=== PATIENT | male | born 1980 | race Caucasian/White ===

== ENCOUNTER 2018-06-30 14:41 | Inpatient (IN) | payer BC ==
[~2018-06-30] VITALS: Ht 185.4 cm; Wt 124.5 kg
[~2018-06-30 14:41] MED LIST: SEVOFLURANE 15 MIN ONE
[2018-06-30] MEDS ORDERED: SOD CHLORIDE 0.9% 1,000 ML IV STA (15:17)
[2018-06-30] MEDS ORDERED: FAMOTIDINE 20 MG INJ IV ONE (15:30)
[2018-06-30] MEDS ORDERED: SOD CHLORIDE 0.9% 100 ML ONE (15:41)
[2018-06-30] MEDS ORDERED: IOHEXOL 300MG/ML 150 ML BTL ONE (15:41)
--- NOTE | 2018-06-30 15:46 | ERD ---
ER Documentation Chief Complaint Chief Complaint SENT SURGEON ( DR ROSALES)-PT HAS AN OBALON PROCEDURE - BALLON RUPTURE - HPI This is a 37-year-old gentleman who was sent by his surgeon for further evaluation of abdominal pain. The patient had a procedure 6 months ago of a gastric balloon inflation by Dr. Rosas. The patient is having severe epigastric abdominal discomfort since yesterday evening after eating salsa. The pain is no bryant to be 8 out of 10 without hematemesis or melena. Patient states that he had a plastic taste in his mouth. Dr. Rosas is concerned that the patient is at risk for perforation and recommends x-ray and CT abdomen and pelvis with IV contrast. ROS All systems reviewed and are negative except as per history of present illness. Medications Home Meds Reported Medications Phentermine Hcl (Phentermine Hcl) 37.5 Mg Tablet, 37.5 MG PO DAILY, TAB 06/30/18 Lansoprazole* (Lansoprazole*) 30 Mg Capsule.dr, 30 MG PO DAILY, CAP 06/30/18 Allergies Allergies: Coded Allergies: No Known Allergy (Unverified , 06/30/18) PMhx/Soc Medical and Surgical Hx: pt denies Surgical Hx Hx Miscellaneous Medical Probl: Yes (OBALON GASTRIC BALLON X 6 MONTHS AGO ) Hx Alcohol Use: No Hx Substance Use: No Hx Tobacco Use: No Smoking Status: Never smoker FmHx Family History: No diabetes Physical Exam Vitals Vital Signs Date Temp Pulse Resp B/P (MAP) Pulse Ox O2 O2 Flow FiO2 Time Delivery Rate 06/30/18 86 18 116/73 99 Room Air 16:39 (87) 06/30/18 98.8 94 19 149/90 96 14:48 (109) Physical Exam General: Well developed, well nourished, no acute distress Head: Normocephalic, atraumatic. Eyes: Pupils equally reactive, EOM intact ENT: Moist mucous membranes Neck: Supple, no lymphadenopathy Respiratory: Lungs clear bilaterally, no distress Cardiovascular: RRR, no murmurs, rubs, or gallops Abdominal: Soft, mild epigastric abdominal tenderness without rebound or guarding, no peritonitis : Deferred MSK: No edema, no unilateral swelling, 5/5 strength Neurologic: Alert and oriented, moving all extremities, normal speech, no focal weakness, no cerebellar signs Skin: No rash Psych: Normal mood Result Diagram: 4/14/19 1522 06/30/18 1522 Results 24 hrs Laboratory Tests Test 06/30/18 15:22 White Blood Count 14.9 10^3/ul Red Blood Count 5.24 10^6/ul Hemoglobin 16.1 g/dl Hematocrit 46.9 % Mean Corpuscular Volume 89.5 fl Mean Corpuscular Hemoglobin 30.7 pg Mean Corpuscular Hemoglobin Concent 34.3 g/dl Red Cell Distribution Width 11.9 % Platelet Count 294 10^3/UL Mean Platelet Volume 9.3 fl Immature Granulocytes % 0.400 % Neutrophils % 75.6 % Lymphocytes % 17.3 % Monocytes % 5.0 % Eosinophils % 1.1 % Basophils % 0.6 % Nucleated Red Blood Cells % 0.0 /100WBC Immature Granulocytes # 0.060 10^3/ul Neutrophils # 11.3 10^3/ul Lymphocytes # 2.6 10^3/ul Monocytes # 0.7 10^3/ul Eosinophils # 0.2 10^3/ul Basophils # 0.1 10^3/ul Nucleated Red Blood Cells # 0.0 10^3/ul Prothrombin Time 12.4 Sec Prothrombin Time Ratio 1.0 INR International Normalized Ratio 0.91 Activated Partial Thromboplast Time 24.5 Sec Sodium Level 143 mmol/L Potassium Level 4.5 mmol/L Chloride Level 102 mmol/L Carbon Dioxide Level 28 mmol/L Anion Gap 13 Blood Urea Nitrogen 14 mg/dl Creatinine 0.74 mg/dl Est Glomerular Filtrat Rate mL/min > 60 mL/min Glucose Level 148 mg/dl Calcium Level 10.4 mg/dl Total Bilirubin 1.1 mg/dl Direct Bilirubin 0.00 mg/dl Indirect Bilirubin 1.1 mg/dl Aspartate Amino Transf (AST/SGOT) 27 IU/L Alanine Aminotransferase (ALT/SGPT) 41 IU/L Alkaline Phosphatase 103 IU/L Total Protein 8.8 g/dl Albumin 5.0 g/dl Globulin 3.80 g/dl Albumin/Globulin Ratio 1.31 Lipase 113 U/L Current Medications Medications Dose Sig/Kentrell Start Time Status Last (Trade) Ordered Route PRN Stop Time Admin Dose Reason Admin Sodium 1,000 ml @ Q1H STAT 06/30/18 DC 06/30/18 Chloride 1,000 mls/hr IV 15:17 15:32 06/30/18 16:16 Famotidine 20 mg ONCE ONCE 06/30/18 DC 06/30/18 (Pepcid Iv) IV 15:30 15:32 06/30/18 15:31 IV Flush 10 ml STK-MED 06/30/18 DC (NS 10 ml) ONCE .ROUTE 15:41 06/30/18 15:42 Sodium 100 ml @ ud STK-MED 06/30/18 DC Chloride ONCE .ROUTE 15:41 06/30/18 15:42 Iohexol 150 ml STK-MED 06/30/18 DC (Omnipaque ONCE .ROUTE 15:41 300mg/ ml) 06/30/18 15:42 650 mg ONCE ONCE 06/30/18 DC 06/30/18 Acetaminophen PO 16:30 16:31 (Tylenol 06/30/18 16:31 Tab) 40 mg ONCE ONCE 06/30/18 DC 06/30/18 Pantoprazole IV 18:00 17:56 (Protonix 06/30/18 18:01 Iv) Ondansetron 4 mg BRIDGE ORDER 06/30/18 HCl (Zofran PRN IV 18:30 Inj) NAUSEA/VOMITI 07/01/18 18:29 NG 650 mg ER BRIDGE 06/30/18 Acetaminophen PRN PO 18:30 (Tylenol .MILD PAIN 07/01/18 18:29 Tab) 1-3 OR TEMP Procedures/MDM EKG, MONITORS, & DIAGNOSTIC IMAGING: Chest x-ray: IMPRESSION: No evidence of active cardiopulmonary disease. RPTAT: EE CT abdomen and pelvis: IMPRESSION: No evidence of urolithiasis, obstructive uropathy, diverticulitis or appendicitis. 3 Air-filled balloons inflated in the lumen of the stomach. Clinical correlation suggested. Enlarged fatty liver. LAB INTERPRETATION: I reviewed the laboratory testing and it shows WBC elevated MEDICAL DECISION MAKING: The patient's presentation is likely consistent with gastritis. However, given his surgical procedure he is at risk for ulceration and perforation. His surgeon is asking for CT imaging and x-ray imaging of the abdomen and pelvis. No signs or symptoms concerning for dissection or acute coronary syndrome. ER COURSE: * Patient given H2-siddhartha. Pain improved. * Surgeon notified of CT imaging, he is concerned that the patient has a leukocytosis and warrants hospitalization for removal of balloons. Patient was given PPI per surgeon request. CONSULTATION: General surgeon as documented above DISPOSITION PLAN: Accepting care team and consultations: I discussed the current laboratory data, diagnostic imaging and emergency care provided. Admitting team: Dr. Bacon Admitting team indication: Insurance directed Departure Diagnosis: Primary Impression: Epigastric abdominal pain Additional Impression: Leukocytosis Leukocytosis type: unspecified Qualified Codes: D72.829 - Elevated white blood cell count, unspecified Condition: Stable REBECA PERRY MD Jun 30, 2018 15:46
[2018-06-30] MEDS ORDERED: ACETAMINOPHEN 325 MG TAB PO ONE (16:30)
[2018-06-30] MEDS ORDERED: LANS30CA PO (16:39)
[2018-06-30] MEDS ORDERED: PHEN37.53 PO (16:39)
[2018-06-30] MEDS ORDERED: PANTOPRAZOLE 40 MG INJ IV ONE (18:00)
[2018-06-30] MEDS ORDERED: ONDANSETRON 4 MG INJ IV PRN ×3 (18:30→22:30)
[2018-06-30] MEDS ORDERED: ACETAMINOPHEN 325 MG TAB PO PRN ×2 (18:30→22:30)
[2018-06-30 19:30] VITALS: BP 117/73; PULSE 87; RESP 18
--- NOTE | 2018-06-30 20:31 | PREAC ---
Date/Time of Note Date/Time of Note DATE: 06/30/18 TIME: 20:30 Anesthesia Eval and Record Evaluation Time Pre-Procedure Interview DATE: 06/30/18 TIME: 20:30 Age 37 Sex male NPO: 8 hrs Preoperative diagnosis ABd apin Planned procedure EGD removal of gaschantal cherry Past Medical History Past Medical History: Includes GI: Obesity Surgery & Anesthesia Issues No known issue Meds Anticoagulation: No Beta Lee Ann within 24 hr: No Reason Beta Lee Ann not given: Pt. not on B-Lee Ann Reported Medications Phentermine Hcl (Phentermine Hcl) 37.5 Mg Tablet, 37.5 MG PO DAILY, TAB 06/30/18 Lansoprazole* (Lansoprazole*) 30 Mg Capsule.dr, 30 MG PO DAILY, CAP 06/30/18 Current Medications Ondansetron HCl (Zofran Inj) 4 mg BRIDGE ORDER PRN IV NAUSEA/VOMITING; Start 06/30/18 at 18:30; Stop 07/01/18 at 18:29 Acetaminophen (Tylenol Tab) 650 mg ER BRIDGE PRN PO .MILD PAIN 1-3 OR TEMP; Start 06/30/18 at 18:30; Stop 07/01/18 at 18:29 Meds reviewed: Yes Allergies Coded Allergies: No Known Allergy (Unverified , 06/30/18) Allergies Reviewed: Yes Labs/Studies Labs Reviewed: Reviewed by anesthesiologist Result Diagram: 06/30/18 1522 06/30/18 1522 Laboratory Tests 06/30/18 15:22 test: N/A Studies: ECG (m/a), CXR (n/a) Pre-procedure Exam Last vitals Vital Signs Date Temp Pulse Resp B/P (MAP) Pulse Ox O2 O2 Flow FiO2 Time Delivery Rate 06/30/18 80 19 133/93 100 Room Air 19:29 (106) 06/30/18 98.0 18:50 Airway: Adequate mouth opening Mallampati: Mallampati III Teeth: Normal Lung: Normal Heart: Normal ASA Physical Status ASA physical status: 2 Emergency: None Planned Anesthetic General/MAC: ETT Planned Pain Management Parenteral pain med Pre-operative Attestations Prior to commencing anesthesia and surgery, the patient was re-evaluated, there was verification of: *The patient's identity *The results of appropriate recent lab work and preoperative vital signs *The above evaluation not changing prior to induction *Anesthetic plan, risk benefits, alternative and complications discussed with patient/family; questions answered; patient/family understands, accepts and wishes to proceed. PAVEL CROUCH MD Jun 30, 2018 20:31
[2018-06-30] MEDS ORDERED: PROPOFOL 20 ML ONE ×2 (20:43→21:10)
[2018-06-30] MEDS ORDERED: METOCLOPRAMIDE 10 MG INJ ONE (20:43)
[2018-06-30] MEDS ORDERED: MIDAZOLAM 1 MG/ML 2 ML INJ ONE (20:43)
[2018-06-30] MEDS ORDERED: SUCCINYLCHOLINE CHLORIDE 100 MG/5 ML SYG IV ONE (20:43)
[2018-06-30] MEDS ORDERED: ONDANSETRON 4 MG INJ ONE (20:43)
[2018-06-30] MEDS ORDERED: FENTAnyl 50 MCG/ML VIAL ONE (20:44)
--- NOTE | 2018-06-30 20:47 | CONS ---
Assessment/Plan Assessment/Plan Assessment/Plan (Daily) 37 year old male with morbid obesity, s/p gastric balloon with severe abdominal pain, Epigastric tenderness, elevated WBC 15, - most likely secondary to ulceration - possible pending perforation, patient started on PPI -- Recommend emergency removal of foreign body Plan: 1. Consent 2. Removal of foreign body - 3. continue PPI 4. Follow up in Clinic Consultation Date/Type/Reason Admit Date/Time Jun 30, 2018 at 18:03 Date of Consultation: Jun 30, 2018 Type of Consult General Surgery consult Reason for Consultation Evaluation of acute abdominal pain Date/Time of Note DATE: 06/30/18 TIME: 20:33 Hx of Present Illness This is a 37-year-old gentleman with morbid obesity gastric balloon placement 6 months ago. He was in his usual state of health until yesterday when he started having abdominal pain. The pain is noted to be 8 out of 10 without hematemesis or melena. He had spicy food last evening, and attributes the pain to spicy food. Patient states that he had a plastic taste in his mouth. Patient was referred to ER for emergency evaluation is concerned that the patient is at risk for perforation and recommends x-ray and CT abdomen and pelvis with IV contrast. Patient denies any Fever, chills, any recent sickness, no cough, SOB. Last PO intake in Am. Patient states that he has not been taking his PPI as was directed. ROS All systems reviewed and are negative except as per history of present illness. Medications Home Meds Reported Medications Phentermine Hcl (Phentermine Hcl) 37.5 Mg Tablet, 37.5 MG PO DAILY, TAB 06/30/18 Lansoprazole* (Lansoprazole*) 30 Mg Capsule.dr, 30 MG PO DAILY, CAP 06/30/18 Allergies Allergies: Coded Allergies: No Known Allergy (Unverified , 06/30/18) PMhx/Soc Medical and Surgical Hx: pt denies Surgical Hx Hx Miscellaneous Medical Probl: Yes (OBALON GASTRIC BALLON X 6 MONTHS AGO ) Hx Alcohol Use: No Hx Substance Use: No Hx Tobacco Use: No Smoking Status: Never smoker Constitutional: No no complaints, No improved, No chills, No diaphoresis, No disoriented, No febrile, No poor po, No requiring IVF, No requiring O2, No other Eyes: No no complaints, No pain, No discharge, No redness, No visual change, No other ENT: No no complaints, No bleeding, No pain, No congestion, No discharge, No dysphagia, No sore throat, No other Respiratory: No no complaints, No pain, No cough, No pleuritic pain, No shortness of breath, No sputum, No wheezing, No other Cardiovascular: No no complaints, No chest pain, No edema, No lightheadedness, No orthopenea, No palpitations, No paroxysmal nocturnal dyspnea, No other Gastrointestinal: pain, decreased appetite, nausea Genitourinary: No no complaints, No bleeding, No dysuria, No discharge, No flank pain, No hematuria, No other Musculoskeletal: No no complaints, No back pain, No bone/joint pain, No neck pain, No restricted range of motion, No swelling, No other Skin: No no complaints, No bruising, No erythema, No laceration, No pruritis, No rash, No skin lesions, No other Neurologic: No no complaints, No confusion, No dizziness, No focal-weakness, No headache, No syncope, No seizure, No other Endocrine: No no complaints, No polyuria, No polydypsia, No dry skin, No temp intolerance, No other Lymphatic: No no complaints, No adenopathy, No tender nodes, No lymphadema, No other Psychological: No no complaints, No nl mood/affect, No anxiety, No confusion, No depression, No suicidal, No other Immunologic: No no complaints, No immunodeficiency, No pruritis, No rhinitis, No urticaria, No other Past Medical History Home Meds Reported Medications Phentermine Hcl (Phentermine Hcl) 37.5 Mg Tablet, 37.5 MG PO DAILY, TAB 06/30/18 Lansoprazole* (Lansoprazole*) 30 Mg Capsule.dr, 30 MG PO DAILY, CAP 06/30/18 Medications Current Medications Ondansetron HCl (Zofran Inj) 4 mg BRIDGE ORDER PRN IV NAUSEA/VOMITING; Start 06/30/18 at 18:30; Stop 07/01/18 at 18:29 Acetaminophen (Tylenol Tab) 650 mg ER BRIDGE PRN PO .MILD PAIN 1-3 OR TEMP; Start 06/30/18 at 18:30; Stop 07/01/18 at 18:29 Allergies: Coded Allergies: No Known Allergy (Unverified , 06/30/18) Social History Smoking Status: Never smoker Exam/Review of Systems Exam Vitals Vital Signs Date Temp Pulse Resp B/P (MAP) Pulse Ox O2 O2 Flow FiO2 Time Delivery Rate 06/30/18 80 19 133/93 100 Room Air 19:29 (106) 06/30/18 98.0 18:50 Gastrointestinal: soft, nl liver, spleen, non-tender, ascites, bowel sounds, distended, firm, hepatomegaly, mass, rebound or guarding, splenomegaly, surgical scars, tender (Epigastric - moderate ), other Results Result Diagram: 06/30/18 1522 06/30/18 1522 Results 24hrs Laboratory Tests Test 06/30/18 15:22 White Blood Count 14.9 H Red Blood Count 5.24 Hemoglobin 16.1 Hematocrit 46.9 Mean Corpuscular Volume 89.5 Mean Corpuscular Hemoglobin 30.7 Mean Corpuscular Hemoglobin Concent 34.3 Red Cell Distribution Width 11.9 Platelet Count 294 Mean Platelet Volume 9.3 Immature Granulocytes % 0.400 Neutrophils % 75.6 Lymphocytes % 17.3 Monocytes % 5.0 Eosinophils % 1.1 Basophils % 0.6 Nucleated Red Blood Cells % 0.0 Immature Granulocytes # 0.060 H Neutrophils # 11.3 H Lymphocytes # 2.6 Monocytes # 0.7 Eosinophils # 0.2 Basophils # 0.1 Nucleated Red Blood Cells # 0.0 Prothrombin Time 12.4 Prothrombin Time Ratio 1.0 INR International Normalized Ratio 0.91 Activated Partial Thromboplast Time 24.5 Sodium Level 143 Potassium Level 4.5 Chloride Level 102 Carbon Dioxide Level 28 Anion Gap 13 Blood Urea Nitrogen 14 Creatinine 0.74 Est Glomerular Filtrat Rate mL/min > 60 Glucose Level 148 Calcium Level 10.4 H Total Bilirubin 1.1 Direct Bilirubin 0.00 Indirect Bilirubin 1.1 Aspartate Amino Transf (AST/SGOT) 27 Alanine Aminotransferase (ALT/SGPT) 41 Alkaline Phosphatase 103 Total Protein 8.8 H Albumin 5.0 H Globulin 3.80 H Albumin/Globulin Ratio 1.31 Lipase [address] Negative for perforation -- + gastric balloon x 3 US -- GB wall thickening - no stones Medications Medication Current Medications Ondansetron HCl (Zofran Inj) 4 mg BRIDGE ORDER PRN IV NAUSEA/VOMITING; Start 06/30/18 at 18:30; Stop 07/01/18 at 18:29 Acetaminophen (Tylenol Tab) 650 mg ER BRIDGE PRN PO .MILD PAIN 1-3 OR TEMP; Start 06/30/18 at 18:30; Stop 07/01/18 at 18:29 BOBBY SALEEM MD Jun 30, 2018 20:44
[2018-06-30] MEDS ORDERED: ALBUTEROL/IPRATROPIUM (NEB) 3 ML AMP HHN PRN (21:00)
[2018-06-30] MEDS ORDERED: NACL 0.9% 3 ML SYG IV SCH (21:00)
[2018-06-30] MEDS ORDERED: ROCURONIUM 50 MG INJ ONE (21:12)
[2018-06-30 21:15] VITALS: Ht 185.4 cm; Wt 124.5 kg
[2018-06-30] MEDS ORDERED: NEOSTIGMINE 3 MG/3 ML SYRINGE ONE (21:45)
[2018-06-30] MEDS ORDERED: GLYCOPYRROLATE 0.4 MG INJ ONE (21:45)
--- NOTE | 2018-06-30 22:16 | SIPON ---
Date/Time of Note Date/Time of Note DATE: 06/30/18 TIME: 22:12 Operative Report Preoperative Diagnosis Acute abdominal pain, Foreign body, morbid obesity Postoperative Diagnosis Gastric Ulcer, Gastritis, Morbid obesity Operation/Procedure Performed Upper endoscopy and removal of foreign body Surgeon Mis JARVIS. teacher's assistant None Anesthesia: general Estimated blood loss: none Transfusion Required none Specimen Gastric balloon - type OBALON X 3 Grafts/Implants none Complications none BOBBY SALEEM MD Jun 30, 2018 22:16
[2018-06-30] MEDS: LACTATED RINGER'S 1,000 ML IV SCH (22:28)
[2018-06-30 22:30] VITALS: BP 119/64; PULSE 83; RESP 12
[2018-06-30] MEDS ORDERED: DIPHENHYDRAMINE 50 MG INJ IV PRN (22:30)
[2018-06-30] MEDS ORDERED: CEPASTAT LOZENGE MT PRN (22:30)
[2018-06-30 22:44] VITALS: BP 123/64; PULSE 65; RESP 18
--- NOTE | 2018-06-30 23:42 | HP ---
Date/Time of Note Date/Time of Note DATE: 06/30/18 TIME: 23:42 Assessment/Plan VTE Prophylaxis Risk score (from Nsg)>0 risk: 3 SCD applied (from Nsg): No Lines/Catheters IV Catheter Type (from Nrsg): Saline Lock Assessment/Plan Assessment/Plan 37-year-old morbidly obese male with a history of 3 gastric balloon placement 6 months ago presents with acute onset abdominal pain. Patient is now status post removal of the balloons. PLAN -Postop diagnosis include gastric ulcer and acute gastritis. Will be treated with PPI -Follow-up surgery recommendation Result Diagram: 06/30/18 1522 06/30/18 1522 Results 24hrs Laboratory Tests Test 06/30/18 15:22 White Blood Count 14.9 H Red Blood Count 5.24 Hemoglobin 16.1 Hematocrit 46.9 Mean Corpuscular Volume 89.5 Mean Corpuscular Hemoglobin 30.7 Mean Corpuscular Hemoglobin Concent 34.3 Red Cell Distribution Width 11.9 Platelet Count 294 Mean Platelet Volume 9.3 Immature Granulocytes % 0.400 Neutrophils % 75.6 Lymphocytes % 17.3 Monocytes % 5.0 Eosinophils % 1.1 Basophils % 0.6 Nucleated Red Blood Cells % 0.0 Immature Granulocytes # 0.060 H Neutrophils # 11.3 H Lymphocytes # 2.6 Monocytes # 0.7 Eosinophils # 0.2 Basophils # 0.1 Nucleated Red Blood Cells # 0.0 Prothrombin Time 12.4 Prothrombin Time Ratio 1.0 INR International Normalized Ratio 0.91 Activated Partial Thromboplast Time 24.5 Sodium Level 143 Potassium Level 4.5 Chloride Level 102 Carbon Dioxide Level 28 Anion Gap 13 Blood Urea Nitrogen 14 Creatinine 0.74 Est Glomerular Filtrat Rate mL/min > 60 Glucose Level 148 Calcium Level 10.4 H Total Bilirubin 1.1 Direct Bilirubin 0.00 Indirect Bilirubin 1.1 Aspartate Amino Transf (AST/SGOT) 27 Alanine Aminotransferase (ALT/SGPT) 41 Alkaline Phosphatase 103 Total Protein 8.8 H Albumin 5.0 H Globulin 3.80 H Albumin/Globulin Ratio 1.31 Lipase 113 HPI/ROS Admit Date/Time Admit Date/Time Jun 30, 2018 at 18:03 Hx of Present Illness This is a 37-year-old morbidly obese male with a history of 3 gastric balloon placement 6 months ago. He presented to ER with acute onset abdominal pain. Patient has now been taken to the OR for a removal. Postop diagnoses include gastric ulcer and acute gastritis. No complications during surgery. PMH/Family/Social Past Medical History Medications Current Medications Ondansetron HCl (Zofran Inj) 4 mg BRIDGE ORDER PRN IV NAUSEA/VOMITING; Start 06/30/18 at 18:30; Stop 07/01/18 at 18:29 Acetaminophen (Tylenol Tab) 650 mg ER BRIDGE PRN PO .MILD PAIN 1-3 OR TEMP; Start 06/30/18 at 18:30; Stop 07/01/18 at 18:29 IV Flush (NS 3 ml) 3 ml PER PROTOCOL IV ; Start 06/30/18 at 21:00 Ondansetron HCl (Zofran Inj) 4 mg Q6H PRN IV NAUSEA/VOMITING; Start 06/30/18 at 21:00 Albuterol/ Ipratropium (Duoneb) 3 ml Q2H RESP THERAPY PRN HHN SHORTNESS OF BREATH; Start 06/30/18 at 21:00 Acetaminophen (Tylenol Tab) 650 mg Q6H PRN PO MILD PAIN(1-3)OR ELEVATED TEMP; Start 06/30/18 at 22:30 Diphenhydramine HCl (Benadryl) 25 mg Q6H PRN IV ITCHING; Start 06/30/18 at 22:30 Ondansetron HCl (Zofran Inj) 4 mg Q6H PRN IV NAUSEA AND/OR VOMITING; Start 06/30/18 at 22:30 Pantoprazole (Protonix Iv) 40 mg DAILY@06 IV ; Start 07/01/18 at 06:00 Lactated Ringer's 1,000 ml @ 100 mls/hr Q10H IV ; Start 06/30/18 at 22:28 Phenol (Cepastat Lozenge) 1 lozenge PRN PRN MT SORE THROAT; Start 06/30/18 at 22:30 Coded Allergies: No Known Allergy (Unverified , 06/30/18) Social History Smoking Status: Never smoker Exam/Review of Systems Vital Signs Vitals Vital Signs Date Temp Pulse Resp B/P (MAP) Pulse Ox O2 O2 Flow FiO2 Time Delivery Rate 06/30/18 98.3 65 18 123/64 98 Room Air 22:44 (83) JESUSITA RODRIGUEZ MD Jun 30, 2018 23:42
--- NOTE | 2018-07-01 01:40 | OPR ---
DATE OF OPERATION: PREOPERATIVE DIAGNOSES: 1. Acute abdominal pain. 2. Foreign body in the stomach. 3. Morbid obesity status post gastric balloon placement. 4. Leukocytosis. POSTOPERATIVE DIAGNOSES: 1. Gastric ulceration. 2. Acute gastritis. 3. Acute abdominal pain. HISTORY: The patient is a 37-year-old male with morbid obesity who had undergone an oblong gastric b alloon placement. Three balloons were placed. The patient is 6 months post-placement and he started having acute abdominal pain, symptoms last for 1 day. Despite of taking antacids, the pain has prog ressively worsened and resulting in patient presentation into the emergency room. On initial evaluat ion, the patient had leukocytosis with tenderness in the epigastric area with x-rays showing the rocio chantal balloons within the stomach. Because of the patient's significant tenderness and discomfort, he was made to proceed with removal of the gastric balloon to prevent a possible perforation due to acut e symptoms. The patient had no other reason for acute leukocytosis. Preoperative consent was obtain ed, the patient was taken to the OR for definitive procedure. PROCEDURE: Upper endoscopy with removal of foreign body, object removed. Gastric balloon x3, type o f balloon, oblong balloon. DESCRIPTION OF PROCEDURE: The patient was seen taken to the OR, placed in supine position. Endotrac heal intubation was achieved by anesthesia. Because of the nature of the operation and being emergen t, the patient underwent general anesthesia to prevent any type of aspiration. An adult Olympus endo scope was introduced through the oropharynx down into the esophagus under direct visualization and th e scope was advanced to the level of GE junction which was approximately 35 cm from the incisura. On ce inside the stomach, a quick survey of the stomach demonstrated scattered gastritis with 2 areas of ulceration. The ulcers were relatively small, approximately 4 mm in size on the greater curvature. The 3 balloons were intact. However, I did notice that there seemed to be fluid within the balloon which was rather unusual. It should be noted that the balloons had not deflated. We initiated the b alloon removal by using 3 mm needle to puncture the wall of the balloon, the balloon wall was punctur ed with a needle and the content of the balloon which air was sucked out resulting in collapse C-shap ed balloon. Next, an alligator grasper was used to remove the balloon, the first balloon we had diff iculty secondary to inability to completely deflate the balloon, despite 3 attempts. Finally on the fourth attempt, we were able to deflate the balloon completely and removed the balloon with a gentle pulling of the balloon as it was attached the scope with the alligator grasper. With the additional 2 balloons were removed without any difficulty and all the balloons were placed in a back for s ubmission to the [employer]. The patient tolerated the procedure well and was sent to the PACU i n stable condition. The patient will be continued on PPI postoperatively. Dictated By: BOBBY ALMEIDA/SALBADOR Conf#: [id number] DID#: [id number] CC: JENNIFER SWIFT MD;*[facility]*
[2018-07-01 01:49] VITALS: BP 113/68; PULSE 90; RESP 18
[2018-07-01 04:13] VITALS: BP 115/55; PULSE 72; RESP 18
[2018-07-01] MEDS ORDERED: PANTOPRAZOLE 40 MG INJ IV SCH (06:00)
[2018-07-01 07:21] VITALS: BP 106/63; PULSE 78; RESP 19
[2018-07-01] MEDS: LACTATED RINGER'S 1,000 ML IV SCH (08:28)
--- NOTE | 2018-07-01 09:08 | PAC ---
Date/Time of Note Date/Time of Note DATE: 07/01/18 TIME: 09:08 Post-Anesthesia Notes Post-Anesthesia Note Last documented vital signs Vital Signs Date Temp Pulse Resp B/P (MAP) Pulse Ox O2 O2 Flow FiO2 Time Delivery Rate 07/01/18 98.2 78 19 106/63 99 07:21 (77) 07/01/18 Room Air 01:49 Activity: WNL Respiratory function: WNL Cardiovascular function: WNL Mental status: Baseline Pain reasonably controlled: Yes Hydration appropriate: Yes Nausea/Vomiting absent: No PAVEL CROUCH MD Jul 01, 2018 09:08
[2018-07-01 14:27] VITALS: BP 121/71; PULSE 81; RESP 18
[2018-07-01] MEDS ORDERED: ESOM20CA PO (15:25)
[2018-07-01] MEDS ORDERED: CARSUSP PO (16:43)
--- NOTE | 2018-07-01 17:18 | DS ---
DATE OF ADMISSION: 06/30/2018 DATE OF DISCHARGE: 07/01/2018 PRESENTING COMPLAINT: Acute onset abdominal pain, nausea and vomiting. HISTORY OF PRESENT COMPLAINT: A 37-year-old morbidly obese male who had a history of 3 gastric balloon placements 6 months ago, has been having intractable nausea and vomiting since on and off, who presented to the emergency room with acute onset abdominal pain. The patient was taken to the operating room by general surgery and the balloons were removed. He was also found to have gastric ulcerations with acute gastritis in addition to the pain. The balloons were removed successfully and the patient was observed overnight. At this time, pain is much improved and he has been tolerating the diet and is requesting to be discharged home. He will be discharged home on a b.i.d. PPI therapy as well as Carafate therapy for at least 2 weeks and recommended to follow up with his obesity specialist in the next 1 to 2 weeks as well as his primary care doctor. DISCHARGE CONDITION: Stable. ACTIVITY: As tolerated. FOLLOWUP: As per HPI and hospital course. DIET: Recommended diet is low cholesterol, low fat. FINAL DIAGNOSES: A 37-year-old male who presented with abdominal pain after gastric balloon placement for weight loss and morbid obesity, was managed with: 1. Foreign body/gastric balloon placement in abdomen with abdominal pain, status post intraoperative removal. 2. Acute gastric ulcerations noted with gastritis. 3. Morbid obesity with BMI of 36. 4. ADHD, on phentermine therapy. Time spent on discharge coordination has been about 45 minutes. Dictated By: TRISTA GABRIEL MD BA/NTS Conf#: [id number] DID#: [id number] CC: JENNIFER SWIFT MD; BOBBY SALEEM;*EndCC* MTDD
== END 2018-07-01 16:00 | disposition home or self-care (01) | DRG 395 ==
LOC: E/R 14:41 → MS1 18:03
PROVIDERS: ADMIT Internal Medicine; ATTEND Internal Medicine
PROC: 0DC68ZZ Extirpation of Matter from Stomach, Via Natural or Artificial Opening Endoscopic (ICD-10-PCS; principal; 2018-06-30 22:23)
DX: K95.89 Other complications of other bariatric procedure (principal); R10.13 Epigastric pain; Z98.84 Bariatric surgery status; E66.9 Obesity, unspecified; Z68.36 Body mass index [BMI] 36.0-36.9, adult; K25.9 Gastric ulcer, unspecified as acute or chronic, without hemorrhage or perforation
CPT/HCPCS: 36415; 71045; 74177; 76705; 80053; 83690; 83735; 84100; 85025; 85610; 85730; 96374; 96375; C9113; J2250; J2405; J2710; J2765; J3010; J7030; J7120; Q9967